=== PATIENT | female | born 1965 | race Caucasian/White ===

== ENCOUNTER 2020-05-12 09:01 | Emergency (ER) | payer MEDICAID ==
[~2020-05-12] VITALS: Ht 167.6 cm; Wt 72.6 kg
--- NOTE | 2020-05-12 09:50 | NUR ---
PATIENT TO [facility] #1
[2020-05-12 10:06] LABS: BILIRUBIN,URINE NEGATIVE (NEGATIVE); BLOOD, URINE NEGATIVE (NEGATIVE); CLARITY/URINE CLEAR (CLEAR); COLOR,URINE YELLOW (YELLOW); GLUCOSE,URINE NEGATIVE (NEGATIVE); KETONES,URINE NEGATIVE (NEGATIVE); LEUKOCYTE ESTERASE ,URINE NEGATIVE (NEGATIVE); NITRITE, URINE NEGATIVE (NEGATIVE); PH,URINE 6.5 (5.0-8.0); PROTEIN URINE NEGATIVE (NEGATIVE); UROBILINOGEN,URINE 0.2 (0.2-1.0)
[2020-05-12] MEDS ORDERED: IBUPROFEN 800 MG TABLET PO ONE (10:45)
[2020-05-12] MEDS ORDERED: [UNRECOGNIZED DRUG - CODE] PO (11:13)
[2020-05-12] MEDS ORDERED: LISI20TA PO (11:13)
[2020-05-12 11:14] VITALS: BP_SYST 137
[2020-05-12 11:24] VITALS: BP_SYST 137
--- NOTE | 2020-05-12 11:25 | NUR ---
PATIENT PRESENTS TO THE ER WITH TWO DAY HX OF OCCIPITAL PAIN; NO TRAUMA, NO OTHER REMARKABLE S/S; INITIALLY STATED KIDNEY PAIN, HOWEVER NOT CURRENTLY AN ISSUE
== END 2020-05-12 11:22 | disposition home or self-care (01) ==
LOC: SED 09:01
DX: M54.81 Occipital neuralgia (principal)
CPT/HCPCS: 81003; 99283

== ENCOUNTER 2021-10-26 08:57 | Emergency (ER) | payer MEDICAID ==
[~2021-10-26] VITALS: Ht 167.6 cm; Wt 86.2 kg
[2021-10-26 08:57] VITALS: BP_SYST 191
[~2021-10-26 08:57] MED LIST: LISI20TA PO; [UNRECOGNIZED DRUG - CODE] PO
--- NOTE | 2021-10-26 09:00 | NUR ---
BROUGHT BACK TO BED #7 AND TRIAGED, REPORT GIVEN TO ARMANDO
--- NOTE | 2021-10-26 09:05 | NUR ---
Pt AAO and ambulatory reporting an acute onset of SOB that started this morning. Pt also is c/o pain in legs x weeks. Pt v/s stable and pt does not appear to be in any respiratory distress. Breathing is regular and unlabored. Pt denies any trauma or injury to legs.
--- NOTE | 2021-10-26 09:08 | NUR ---
Dr. Chu at bedside to assess.
--- NOTE | 2021-10-26 09:22 | NUR ---
Lab at bedside for blood draw.
--- NOTE | 2021-10-26 09:25 | NUR ---
Portable CXR being done at bedside.
[2021-10-26 09:48] LABS: ANION GAP 6 (5-15); CALCIUM 9.7 mg/dL (8.4-11.0); CHLORIDE 103 mmol/L (98-107); CREATININE 1.33 mg/dL (0.55-1.30); GLUCOSE 102 mg/dL (70-99); POTASSIUM 3.9 mmol/L (3.5-5.1); SODIUM SERUM 141 mmol/L (136-145); UREA NITROGEN, BLOOD 18 mg/dL (8-21)
[2021-10-26 09:49] LABS: ACETONE, SERUM NEGATIVE (NEGATIVE)
[2021-10-26 09:52] LABS: GFR AFRICAN AMERICAN 54 mL/min (>90)
[2021-10-26 09:57] LABS: BASOPHILS % (AUTO) 0.4 % (0.0-2.0); EOSINOPHILS # (AUTO) 0.4 K/uL (0.0-0.4); EOSINOPHILS % (AUTO) 5.3 % (0.0-4.0); HEMATOCRIT 40.2 % (36-48); HEMOGLOBIN 13.5 g/dL (12.0-16.0); LYMPHOCYTES # (AUTO) 2.1 K/uL (1.0-5.5); LYMPHOCYTES % (AUTO) 31.1 % (20.5-51.5); MEAN CORPUSCULAR HEMOGLOBIN 31 pg (27-31); MEAN CORPUSCULAR HGB CONC 34 % (32-36); MEAN CORPUSCULAR VOLUME 91 fL (79.0-98.0); MONOCYTES # (AUTO) 0.3 K/uL (0.0-1.0); MONOCYTES % (AUTO) 5.2 % (1.7-9.3); NEUTROPHILS # (AUTO) 3.9 K/uL (1.8-7.7); PLATELET COUNT (AUTO) 223 K/uL (130-430); RED BLOOD CELL COUNT(AUTO) 4.41 MIL/uL (4.2-6.2); RED CELL DISTRIBUTION WIDTH 16.3 % (9.0-15.0); WHITE BLOOD COUNT (AUTO) 6.8 K/uL (4.8-10.8)
[2021-10-26 10:04] LABS: ALANINE AMINOTRANSFERASE 21 U/L (12-78); ALBUMIN 4.1 g/dL (3.4-4.8); ASPARTATE AMINOTRANSFERASE 23 U/L (10-37); FREE T4 (FREE THYROXINE) 0.2 ng/dl (0.8-1.5); THYROID STIMULATING HORMONE 67.98 uIu/mL (0.36-3.74); TOTAL BILIRUBIN 0.3 mg/dL (0.0-1.0)
[2021-10-26 10:08] LABS: PROTHROMBIN TIME 10.4 SECS (9.5-12.5)
--- NOTE | 2021-10-26 10:11 | NUR ---
EKG completed with results given to Dr. Chu for interpretation.
[2021-10-26 10:26] LABS: CKMB RELATIVE INDEX 0.9 (0.0-2.9); CREATINE KINASE MB 4.2 ng/mL (0-3.6)
--- NOTE | 2021-10-26 11:00 | NUR ---
Pt is resting quietly in no distress awaiting disposition.
[2021-10-26] MEDS ORDERED: cloNIDine HCL 0.1 MG TABLET PO ONE (11:30)
[2021-10-26] MEDS ORDERED: LEVO125T PO (11:40)
[2021-10-26] MEDS ORDERED: LISI10TA29 PO (11:40)
[2021-10-26 12:46] VITALS: BP_SYST 161
--- NOTE | 2021-10-26 12:49 | NUR ---
Patient given written and verbal discharge instructions and verbalizes understanding. ER MD discussed with patient the results and treatment provided. Patient in stable condition. ID arm band removed. Rx of levothyroxine and lisinopril given. Patient educated on pain management and to follow up with PMD. Pain Scale 0/10. Opportunity for questions provided and answered. Medication side effect fact sheet provided.
== END 2021-10-26 12:49 | disposition home or self-care (01) ==
LOC: SED 08:57
DX: E03.9 Hypothyroidism, unspecified (principal); R06.02 Shortness of breath; Z79.899 Other long term (current) drug therapy
CPT/HCPCS: 36415; 71045; 80053; 82009; 82550; 82553; 83605; 84439; 84443; 84484; 85025; 85610-TC; 85730-TC; 93005; 99285

== ENCOUNTER 2023-06-06 16:49 | Emergency (ER) | payer MEDICAID ==
[~2023-06-06] VITALS: Ht 167.6 cm; Wt 81.6 kg
[~2023-06-06 16:49] MED LIST changes: +LEVO125T PO; +LISI10TA29 PO
[2023-06-06 17:10] VITALS: BP_SYST 132; PULSE 117; RESP 18; O2SAT 97
--- NOTE | 2023-06-06 17:13 | NUR ---
Patient to ER bed 06 to gown for evaluation. Side rails up. Report given to ИВАН Warren
--- NOTE | 2023-06-06 17:50 | NUR ---
ER at bedside examining patient.
--- NOTE | 2023-06-06 17:55 | NUR ---
Patient is a 57-year-old female with a history of Graves' disease and hypertension who presents to the ED for headache. 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 Patient has been taking Aleve with some relief. Denies nausea or vomiting, dizziness, hearing or vision changes, confusion, and recent head trauma.
[2023-06-06] MEDS ORDERED: METOCLOPRAMIDE HCL 10 MG/2 ML VIAL IVP ONE (18:00)
[2023-06-06] MEDS ORDERED: KETOROLAC TROMETHAMINE 30 MG VIAL IVP ONE (18:00)
[2023-06-06] MEDS ORDERED: NACL 0.9% 1,000 ML IV ONE (18:00)
--- NOTE | 2023-06-06 18:00 | NUR ---
# 20 gauge angiocath placed to LEFT ANTECUBITAL. Use of asceptic technique. Opsite placed over site. Blood return noted. Blood for lab drawn from site. Flushed with 10 cc of normal saline. No evidence of infiltration noted. Patient tolerated well.
--- NOTE | 2023-06-06 18:04 | NUR ---
Medicated per MD orders. IVF infusing with no s/s of infiltration at this time. Will cont to monitor
[2023-06-06] MEDS ORDERED: METOCLOPRAMIDE HCL 10 MG/2 ML VIAL ONE (18:07)
[2023-06-06 18:55] LABS: HEMATOCRIT 38.1 % (36-48); HEMOGLOBIN 12.3 g/dL (12.0-16.0); MEAN CORPUSCULAR HEMOGLOBIN 29 pg (27-31); MEAN CORPUSCULAR HGB CONC 32 % (32-36); MEAN CORPUSCULAR VOLUME 91 fL (79.0-98.0); PLATELET COUNT (AUTO) 322 K/uL (130-430); RED BLOOD CELL COUNT(AUTO) 4.19 MIL/uL (4.2-6.2); RED CELL DISTRIBUTION WIDTH 14.4 % (9.0-15.0); WHITE BLOOD COUNT (AUTO) 26.9 K/uL (4.8-10.8)
--- NOTE | 2023-06-06 19:09 | NUR ---
PT STATES TAKING PREDNISONE AND COMPLETED ANTIVIRAL REGIMINE SINCE May,.
[2023-06-06 19:23] LABS: ALANINE AMINOTRANSFERASE 186 U/L (12-78); ANION GAP 5 (5-15); ASPARTATE AMINOTRANSFERASE 97 U/L (10-37); CALCIUM 9.3 mg/dL (8.4-11.0); CHLORIDE 104 mmol/L (98-107); CREATININE 1.14 mg/dL (0.55-1.30); GFR AFRICAN AMERICAN 64 mL/min (>90); GLUCOSE 100 mg/dL (74-106); TOTAL BILIRUBIN 0.3 mg/dL (0.0-1.0); UREA NITROGEN, BLOOD 30 mg/dL (8-21)
--- NOTE | 2023-06-06 19:29 | NUR ---
REPORT GIVEN TO BARRY CORNELL
[2023-06-06 19:40] VITALS: BP_SYST 106; PULSE 98; RESP 16; TEMP 98.3; O2SAT 97
--- NOTE | 2023-06-06 19:40 | NUR ---
Patient given written and verbal discharge instructions and verbalizes understanding. ER MD discussed with patient the results and treatment provided. Patient in stable condition. ID arm band removed. IV catheter removed intact and dressing applied, no active bleeding. Patient educated on MIGRAINE HEADACHE and to follow up with PMD. Pain Scale . Opportunity for questions provided and answered. Medication side effect fact sheet provided.
[2023-06-06 19:46] LABS: BAND % (MANUAL) 7 % (0-6); BASOPHILS % (MANUAL) 0 % (0-2); EOSINOPHILS % (MANUAL) 0 % (0-7); LYMPHOCYTES % (MANUAL) 10 % (20-46); MONOCYTES % (MANUAL) 5 % (0-11)
== END 2023-06-06 19:40 | disposition home or self-care (01) ==
LOC: SED 16:49
DX: G43.409 Hemiplegic migraine, not intractable, without status migrainosus (principal); H53.149 Visual discomfort, unspecified; I10 Essential (primary) hypertension; Z79.899 Other long term (current) drug therapy
CPT/HCPCS: 99285; 96374; 70450; 71045; 96361; 96375; 85027; 80053; 83880; 85007; 87040; 84484; 36415; 76376; 83605; J1885; J2765; J7030